=== PATIENT | male | born 1990 | race Two or more races ===

== ENCOUNTER 2020-10-24 14:45 | Emergency (ER) | payer OTHER ==
[~2020-10-24] VITALS: Ht 180.3 cm; Wt 156.8 kg
[2020-10-24] MEDS ORDERED: CYCLOBENZAPRINE HCL 10 MG TABLET PO ONE (16:00)
[2020-10-24] MEDS ORDERED: MORPHINE SULFATE 10 MG/ML VIAL IVP ONE (16:00)
[2020-10-24] MEDS ORDERED: KETOROLAC TROMETHAMINE 30 MG/ML VIAL IVP ONE (16:00)
[2020-10-24] MEDS ORDERED: LIDOCAINE 5% TRANSDERMAL PATCH TD ONE (16:00)
[2020-10-24 17:19] VITALS: BP 149/78
== END 2020-10-24 17:45 | disposition home or self-care (01) ==
LOC: EMS 14:48
DX: M54.5 Low back pain (principal); R25.2 Cramp and spasm; F17.210 Nicotine dependence, cigarettes, uncomplicated
CPT/HCPCS: 96374; 96375; 99284; J1885; J2270